=== PATIENT | male | born 1970 | race Caucasian/White ===

== ENCOUNTER 2024-09-09 21:44 | Emergency (ER) | payer SELFPAY | END 2024-09-10 00:23 | disposition home or self-care (01) | LOC: MW.ED 21:44 | DX: S20.211A Contusion of right front wall of thorax, initial encounter (principal); M94.0 Chondrocostal junction syndrome [Tietze]; Z79.899 Other long term (current) drug therapy; X50.0XXA Overexertion from strenuous movement or load, initial encounter; Y93.89 Activity, other specified | CPT/HCPCS: 71101-26-RT; 71101-RT; 99282; 99284 ==